=== PATIENT | female | born 1935 | race Caucasian/White ===

== ENCOUNTER 2019-06-12 09:04 | Day surgery (SDC) | payer BC, MEDICARE ==
[2019-06-12] VITALS (12 sets, daily range): BP systolic 98–128; BP diastolic 64–99
[~2019-06-12] VITALS: Ht 172.7 cm; Wt 81.6 kg
[2019-06-12] MEDS ORDERED: normal saline 1000ml 1,000 ML IV SCH (09:24)
[2019-06-12] MEDS ORDERED: fentaNYL/PF 50MCG/1 ML 2ML syringe IV PRN (09:25)
[2019-06-12] MEDS ORDERED: midazolam 2 mg/2 ml injection IV PRN (09:25)
[2019-06-12] MEDS ORDERED: LIDOcaine 1%/PF 5ML 10 MG/ML VIAL SQ ONE (09:25)
[2019-06-12] MEDS ORDERED: normal saline 1000ml 1,000 ML IV PRN (09:40)
[2019-06-12] MEDS ORDERED: DONE-46 PO (10:04)
[2019-06-12] MEDS ORDERED: LISI-604 PO (10:04)
[2019-06-12] MEDS ORDERED: ATOR20TA PO (10:04)
[2019-06-12] MEDS ORDERED: midazolam 2 mg/2 ml injection ONE (10:09)
[2019-06-12] MEDS ORDERED: fentaNYL/PF 50MCG/1 ML 2ML syringe ONE (10:10)
[2019-06-12 10:18] LABS: BASOPHILS # (AUTO) 0.1 X10'3 (0-0.2); BASOPHILS % (AUTO) 1.1 % (0-1); EOSINOPHILS # (AUTO) 0.1 X10'3 (0-0.9); EOSINOPHILS % (AUTO) 1.5 % (0-6); HEMATOCRIT 42.4 % (35.0-45.0); HEMOGLOBIN 14.5 g/dl (12.0-16.0); LYMPHOCYTES # (AUTO) 1.2 X10'3 (1.1-4.8); LYMPHOCYTES % (AUTO) 19.5 % (21-51); MEAN CORPUSCULAR HEMOGLOBIN 33.8 PG (27.0-31.0); MEAN CORPUSCULAR HGB CONC 34.2 g/dL (33.0-36.5); MEAN PLATELET VOLUME 8.6 FL (7.4-10.4); MONOCYTES # (AUTO) 0.6 X10'3 (0-0.9); MONOCYTES % (AUTO) 9.1 % (2-12); NEUTROPHILS # (AUTO) 4.4 X10'3 (1.8-7.7); NEUTROPHILS % (AUTO) 68.8 % (42-75); PLATELET COUNT 205 X10'3 (140-440); RED BLOOD COUNT 4.28 X10'6 (4.20-5.60); RED CELL DISTRIBUTION WIDTH 14.4 % (11.5-14.5); WHITE BLOOD COUNT 6.4 X10'3 (4.5-11.0)
== END 2019-06-12 13:35 | disposition home or self-care (01) ==
LOC: SSTAY O 09:04
PROVIDERS: ATTEND Radiology Vascular & Interventional Radiology
DX: R91.1 Solitary pulmonary nodule (principal); E03.9 Hypothyroidism, unspecified; I10 Essential (primary) hypertension; E78.00 Pure hypercholesterolemia, unspecified; Z90.710 Acquired absence of both cervix and uterus; Z79.899 Other long term (current) drug therapy
CPT/HCPCS: 10009; 36415; 71045; 85025; J2250; J3010; J7030; 32405; 77012; 99152; 99153